=== PATIENT | female | born 1970 | race Caucasian/White ===

== ENCOUNTER 2018-01-11 07:48 | Inpatient (IN) ==
[2018-01-11] MEDS ORDERED: *HR* Midazolam HCl 2 MG/2 ML VIAL ONE (08:06)
[2018-01-11] MEDS ORDERED: *HR* Propofol 200 MG/20 ML VIAL IVP ONE (08:06)
[2018-01-11] MEDS ORDERED: *HR* FentaNYL (PF) 100 MCG/2 ML VIAL ONE ×2 (08:06→09:48)
[2018-01-11] MEDS ORDERED: *HR* Succinylcholine 200 MG/10 ML VIAL IVP ONE (08:08)
[2018-01-11] MEDS ORDERED: CeFAZolin Syr 2,000MG/20 ML 2,000 MG/20 ML SYRINGE IVPB ONE (08:16)
[2018-01-11] MEDS ORDERED: Lidocaine -MPF 1% 2 ML VIAL ID ONE (08:18)
[2018-01-11] MEDS ORDERED: Albuterol 2.5 MG/3 ML NEBULIZER IH ONE (08:18)
[2018-01-11] MEDS ORDERED: Albuterol 2.5 MG/3 ML NEBULIZER ONE (08:20)
[2018-01-11] MEDS: Ringers Solution, Lactated 1,000 ML IVC SCH ×2 (08:27→14:58)
--- NOTE | 2018-01-11 08:32 | Anesthesia Evaluation PreOp ---
Date of Encounter: 01/11/18 Time of Encounter: 08:30 - Past History Planned Operation: Abd sacropexy, ureteral sling, cysto Cardiac History: HTN, Hyperlipidemia Pulmonary History: Smoker (QUIT TWO WEEKS AGO, ON CHANTIX) [employer] History: Denies Any Significant HX Other Medical History: Thyroid (Hypothyroid) Anesthesia History: Past Anesthesia (hysterectomy 2009 thyroidectomy 2011 elbow bilateral 1996 LHC, no stents 2011 tubal ligation 1990 broke shins and reset for bow leg 1971) Alcohol Use: none Drug use: none Medications and Allergies Levothyroxine [Synthroid] 100 mcg PO DAILY 03/21/17 [History] Aspirin 81 mg PO DAILY 01/11/18 [History] Atorvastatin [Lipitor] 40 mg PO HS 01/11/18 [History] Ca/D3/Mag#11/Zinc/School Bus Aide/Ananda/Bor [Caltrate 600+D Plus Tablet] 1 tab PO DAILY 01/11 [History] Gabapentin [Neurontin] 800 mg PO QID 01/11/18 [History] Lisinopril [Zestril] 10 mg PO DAILY 01/11/18 [History] Meloxicam [Meloxicam] 15 mg PO DAILY PRN 01/11/18 [History] OxyCODONE Immed Rel [Roxicodone 10 MG] 10 mg PO Q4-6H PRN 01/11/18 [History] Vitamin E Mixed [Vitamin E] 1,000 unit PO DAILY 01/11/18 [History] 3 Allergy/AdvReac Type Severity Reaction Status Date / Time morphine Allergy Hives Verified 01/11/18 08:14 - Meds/Allergy Pre-op Review Medications Reviewed: Yes Allergies Reviewed: Yes Anesthesia Results - Labs Laboratory Tests 01/06/18 01/06/18 11:15 11:15 Hgb 13.1 Hct 40.7 Plt Count 210 Potassium 4.2 Creatinine 0.83 - Imaging Additional studies: NSR Anesthesia Exam O2 Sat Height 1.63 m Height 1.63 m Weight 91.172 kg BMI 35 O2 Sat by Pulse Oximetry 96 Vital Signs Temp Pulse Resp BP Pulse Ox 97.8 F 68 18 119/80 96 01/11/18 08:06 01/11/18 08:06 01/11/18 08:06 01/11/18 08:06 01/11/18 08:06 35 NPO (# of Hours): >8HRS - HEENT Teeth: Missing, Poor dentition - [employer] LOC: Oriented - Cardiac Rhythm: Regular - Pulmonary Breath Sounds: bilateral Clear Anesthesia Assess/Plan ASA Score: 2 Modified Wallace Scale for Level of Consciousness: Cooperative, oriented, and tranquil Anesthetic Plan: General Monitoring Plan: Standard Monitors Recovery Plan: PACU Anes Supervising Prov Stmt: I have participated in the evaluation of this patient. Patient informed and consented. Risks, benefits, and alternatives discussed. Patient wishes to proceed.
--- NOTE | 2018-01-11 09:09 | History & Physical Report ---
Date of Encounter: 01/11/18 Time of Encounter: 09:08 24 Hour HP Update - Instructions Instructions: If the History and Physical is less than 30 days old and was completed prior to A.M. admission and or procedure and has NOT been updated on calendar day of procedure please complete this update prior to performing procedure. - Update Patient reports changes in Medical Condition: No Changes in examination, assessment, or condition: No Changes in Medication: No Preop tests/diagnostics Reviewed: Yes Surgery Remains Indicated: Yes Consent for Planned Operative Procedure(s) Verified: Yes - Pre-Operative Checklist Preoperative Checklist Indicated: Yes Prophylactic Antibiotic Ordered: Yes Home Medications Include Beta Dima: No Beta Dima Taken Today (Day of Surgery): No Beta Dima Taken Yesterday (Day Prior to Surgery): No Is VTE Prophylaxis Indicated?: Yes
[2018-01-11] MEDS ORDERED: Lidocaine/EPI 1:100k 1% 20 ML VIAL ONE (09:10)
--- NOTE | 2018-01-11 09:10 | History & Physical Report ---
Date of Encounter: 01/11/18
[2018-01-11] MEDS ORDERED: *HR* Rocuronium Bromide 50 MG/5 ML VIAL ONE (09:43)
[2018-01-11] MEDS ORDERED: *HR* PHENYLEPHRINE 1,000 MCG/10 ML SYRINGE IVP ONE (10:33)
[2018-01-11] MEDS ORDERED: Ondansetron 4 MG/2 ML VIAL IVP PRN ×2 (11:25→15:50)
[2018-01-11] MEDS ORDERED: *HR* OxyCODONE Immed Rel 5 MG TABLET PO PRN (11:25)
[2018-01-11] MEDS ORDERED: Neostigmine Methylsulfate 3 MG/3 ML SYRINGE ONE (11:40)
[2018-01-11] MEDS: *HR* FentaNYL (PF) 100 MCG/2 ML VIAL IVP PRN ×2 (13:50→13:55)
[2018-01-11] MEDS ORDERED: Acetaminophen IV 1,000 MG/100 ML INFUS..BTL IVPB ONE (13:57)
[2018-01-11] MEDS ORDERED: Ketorolac 30 MG/ML VIAL IVP ONE (13:57)
[2018-01-11] MEDS: *HR* HYDROmorphone (PF) 1 MG/ML SYRINGE IVP PRN ×6 (14:05→14:53)
--- NOTE | 2018-01-11 14:12 | Operative Note ---
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 Anesthesia was applied without complication. She was then moved in a modified low lithotomy position and draped using sterile technique. hernandes cath Retractor was in place with bowel packed superiorly. . Sharp dissection was used to dissect the bladder away from the anterior vagina along the vesicovaginal septum. No obvious bladder injury occurred during this step. Dissection continued over the cervix and posteriorly to separate the vagina from the rectum along the rectovaginal septum. An EEA was in the vagina to aid in dissection and maneuverability of the vagina. The retroperitoneal space was then exposed by incising the posterior peritoneum from the level of the rectovaginal septum cranially to the sacral promontory. I identified the right ureter and was able to dissect this laterally to avoid injury or involvement with the case. A [employer] polypropylene graft was obtained and trimmed to size. eight 2-0 Prolene sutures were pre-placed. 4 were located on the anterior aspect of the vagina and cervix. 4 additional sutures were placed posterior on the cervix and as posterior as the dissection would allow. The 4 anterior sutures were secured to one arm of the polypropylene graft. The 4 posterior sutures were secured to the other arm. Excess mesh material was excised and it appeared the graft was well secured to the anterior and posterior aspect of the vagina. Two additional Prolene sutures were preplaced at the sacral promontory. These sutures were threaded through the graft to secure the third arm to the sacral promontory. The graft was positioned along the retroperitoneal space cranial to the sacral promontory. It was sized to allow for a tension-free approximation. The peritoneal reflection was closed over the graft using a 2-0 Vicryl isolating the graft in a retroperitoneal location. A cystoscopy was performed. I carefully examined the entire bladder and noted no injury from the procedure. I first cannulated the right ureteral orifice with a 5 Nauruan ureteral catheter. This passed without resistance up to what I felt was the level of the kidney. The same was repeated on the left side and it passed easily. The retractor and all packing were removed. Counts were confirmed to be correct 2. The rectus muscle was closed using a running 0 Vicryl suture. The fascia was closed with a #1 looped PDS. I placed the sling prior to closing the Abilio' s and skin. they were closed with a 2-0 Vicryl and the skin with 4-0 Monocryl and Steri-Strips at the end of the procedure. For the sling I first placed a weighted vaginal speculum and secured with an Allis clamp. Snowman retractor was placed and used to retract the labia and provide better visualization. At that point, approximately 5 cc of 1% lidocaine with epinephrine was injected into the anterior vaginal mucosa overlying the mid urethra to hydrodissect the area. 15 blade scalpel was then used to make an approximately 2-cm veritcal incision. Underlying tissue was carefully dissected with Metzenbaum scissors and blunt dissection to create a space lateral to the urethra and beneath the pubic rami on each side. The hernandes catheter was in place allowing me to palpate the urethra and prevent urethral injury during this portion of the procedure. I had adequate dissection on both sides. The Gordy trocars (opened by accident) were still used and manipulated into a shape similar to the Supris retractors and placed from an [id number] fashion down onto my finger within the vaginal incision and previously dissected area. they were passed just inside of the incision. While passing the trocars I was careful to stay close to the pubic symphysis and used my finger to push the urethra off to the contralateral side. With both trocars in place, I removed the Hernandes catheter and inserted the 21-Nauruan rigid cystoscope. The bladder was inspected with a 30 and 70-degree lens. There was clear efflux of urine from both ureteral orifices and no evidence of trocar injury and the bladder mucosa was intact. The urethra also appeared uninjured and the hernandes catheter was replaced. At that point, I obtained the Supris sling and threaded the sling through the eyelets of the trocars. The trocars were then pulled from an [id number] fashion. The sling was positioned under the mid urethra. The sling was not twisted and had minimal tension . I was satisfied with the sling position and closed the vaginal incision with a running 2-0 Vicryl suture. Vaginal packing was placed with 2- inch Dionte moistened with normal saline. Hernandes catheter was left in place. The excess sling material was excised and incision closed.
[2018-01-11] MEDS ORDERED: *HR* Promethazine 25 MG/ML VIAL ONE (14:28)
[2018-01-11] MEDS ORDERED: *HR* Promethazine 25 MG/ML VIAL IVP PRN (14:47)
--- NOTE | 2018-01-11 15:09 | Anesthesia Evaluation Post Op ---
Date of Encounter: 01/11/18 Time of Encounter: 15:08 - Vital Signs Vital Signs: Vital Signs/O2 Sat, Most Current Temp Pulse Resp BP Pulse Ox 98.2 F 77 14 110/66 96 01/11/18 14:40 01/11/18 15:00 01/11/18 15:00 01/11/18 15:00 01/11/18 15:00 - Lungs Lungs: Clear Ascult./Percussion - Airway Airway: Non-obstructed - Cardiovascular Regular Rate - Mental Status Mental Status: Alert & Oriented, Answers Appropriately - Pain Pain Scale: 0 Pain Scale used: Numeric (1 - 10) - Nausea Vomiting Nausea Vomiting: Not Present - Hydration Hydration: Ice chips, Forrest catheter - Discharge PostOp Status: Transfer Patient to floor
[2018-01-11] MEDS ORDERED: Naloxone 0.4 MG/ML INJ IVP PRN (15:50)
[2018-01-11] MEDS ORDERED: *HR* Belladonna Alkaloids/Opium 60 MG RECTAL SUPPOSITORY RC PRN (15:50)
[2018-01-11] MEDS ORDERED: OXYCODONE Oral CONC 10 MG/0.5 ML ORAL.SYG SL PRN (15:50)
[2018-01-11] MEDS: Gabapentin 400 MG CAPSULE PO SCH ×2 (16:17→20:33)
[2018-01-11] MEDS: *HR* HYDROcodone/Acet 5/325 mg TABLET PO PRN (16:17)
[2018-01-11] MEDS: 0.9 % Sodium Chloride 1,000 ML IVC SCH (16:18)
[2018-01-11] MEDS: *HR* HYDROmorphone 20 MG/20 ML PCA IVC PRN (17:46)
[2018-01-11] MEDS: *HR* Promethazine 25 MG/ML VIAL IVP PRN (21:53)
[2018-01-11] MEDS: Ketorolac 15 MG/ML VIAL IVP PRN (21:54)
[2018-01-12] MEDS: *HR* HYDROcodone/Acet 5/325 mg TABLET PO PRN ×2 (03:41→13:01)
[2018-01-12] MEDS: 0.9 % Sodium Chloride 1,000 ML IVC SCH (03:42)
[2018-01-12 05:21] LABS: Hematocrit 34.4 % (35.3-44.9); Mean Corpuscular HGB Conc 31.7 g/dL (31.6-35.5); Mean Corpuscular Hemoglobin 28.2 pg (28.0-33.3); Mean Corpuscular Volume 89.1 fL (83.0-100.0); Mean Platelet Volume 10.6 fL (9.4-12.4); Platelet Count 160 K/mcL (140-400); Red Blood Count 3.86 M/mcL (3.82-4.97); Red Cell Distribution Width 14.8 % (11.5-14.5)
[2018-01-12 05:43] LABS: Hemoglobin 10.9 g/dL (11.5-15.4)
[2018-01-12 05:48] LABS: BUN/Creatinine Ratio 15 (6-26); Blood Urea Nitrogen 12 mg/dL (6-20); Calcium 9.9 mg/dL (8.6-10.3); Carbon Dioxide 26 mEq/L (23-29); Chloride 109 mEq/L (98-107); Glucose 142 mg/dL (70-105); Osmolality,Calculated 288 (280-300); Potassium 4.2 mEq/L (3.5-5.1); Sodium 138 mEq/L (136-145); eGFR For African Americans > 60 (> 60); eGFR For Non-African Americans > 60 (> 60)
--- NOTE | 2018-01-12 07:31 | Urology Progress Note ---
Date of Encounter: 01/12/18 Time of Encounter: 07:29 - Assessment and Plan (1) Prolapse of vaginal wall Current Visit: Yes Status: Resolved Assessment and plan: OOB to chair. remove hernandes cath. remove vaginal packing. keep JIG GRINDER for now but will turn off today. hold clear diet for now. Progress Note Subjective: still having pain, pain is less Narrative: feels much better today. JIG GRINDER helped. Objective Initial Vital Signs Temp Pulse Resp BP Pulse Ox 97.8 F 68 18 119/80 96 01/11/18 08:06 01/11/18 08:06 01/11/18 08:06 01/11/18 08:06 01/11/18 08:06 - General physical appearance Present: no distress - Genitourinary Urine Appearance: Present: Clear - Additional Exam oriented. - Labs 01/12/18 04:39 01/12/18 04:39 Diabetes panel 01/12/18 Range/Units 04:39 Sodium 138 (136-145) mEq/L Potassium 4.2 (3.5-5.1) mEq/L Chloride 109 H (98-107) mEq/L Carbon Dioxide 26 (23-29) mEq/L BUN 12 (6-20) mg/dL Creatinine 0.81 (0.60-1.20) mg/dL Glucose 142 H (70-105) mg/dL Calcium 9.9 (8.6-10.3) mg/dL Calcium panel 01/12/18 Range/Units 04:39 Calcium 9.9 (8.6-10.3) mg/dL Pituitary panel 01/12/18 Range/Units 04:39 Sodium 138 (136-145) mEq/L Potassium 4.2 (3.5-5.1) mEq/L Chloride 109 H (98-107) mEq/L Carbon Dioxide 26 (23-29) mEq/L BUN 12 (6-20) mg/dL Creatinine 0.81 (0.60-1.20) mg/dL Glucose 142 H (70-105) mg/dL Calcium 9.9 (8.6-10.3) mg/dL Adrenal panel 01/12/18 Range/Units 04:39 Sodium 138 (136-145) mEq/L Potassium 4.2 (3.5-5.1) mEq/L Chloride 109 H (98-107) mEq/L Carbon Dioxide 26 (23-29) mEq/L BUN 12 (6-20) mg/dL Creatinine 0.81 (0.60-1.20) mg/dL Glucose 142 H (70-105) mg/dL Calcium 9.9 (8.6-10.3) mg/dL - VTE Documentation of Mechanical Device: Intermittent pneumatic compression device Consult Discharge Plan - Plan Referrals: Francine Cole, LINE CONTROLLER [Primary Care Provider] -
[2018-01-12] MEDS: Gabapentin 400 MG CAPSULE PO SCH ×4 (08:43→20:54)
[2018-01-12] MEDS ORDERED: 0.9 % Sodium Chloride 1,000 ML ONE (13:44)
[2018-01-12] MEDS: Ketorolac 15 MG/ML VIAL IVP PRN ×2 (13:48→20:55)
[2018-01-12] MEDS: *HR* Promethazine 25 MG/ML VIAL IVP PRN ×2 (15:38→20:55)
[2018-01-12] MEDS: *HR* HYDROmorphone 20 MG/20 ML PCA IVC PRN (16:08)
[2018-01-12] MEDS: *HR* OxyCODONE/APAP 10/325 TABLET PO PRN (19:53)
[2018-01-13] MEDS: *HR* OxyCODONE/APAP 10/325 TABLET PO PRN ×3 (05:42→09:17)
--- NOTE | 2018-01-13 07:09 | Urology Progress Note ---
Date of Encounter: 01/13/18 Time of Encounter: 07:07 - Assessment and Plan (1) Prolapse of vaginal wall Current Visit: Yes Status: Resolved Assessment and plan: Doing okay postoperatively. Still with some pain control issues. Patient wants to go home. I will remove CHERRY DIPPER and see how she does on oral pain medication today. If does okay, okay to discharge. Progress Note Subjective: pain is less, tolerating a regular diet, flatus Narrative: doing ok. still with pain control issues. Objective Initial Vital Signs Temp Pulse Resp BP Pulse Ox 97.8 F 68 18 119/80 96 01/11/18 08:06 01/11/18 08:06 01/11/18 08:06 01/11/18 08:06 01/11/18 08:06 - General physical appearance Present: no distress - Abdomen Present: soft, wound (dry. no drainage) - Labs 01/12/18 04:39 01/12/18 04:39 - VTE Documentation of Mechanical Device: Intermittent pneumatic compression device Consult Discharge Plan - Plan Referrals: Franicne Cole, TECHNICAL SPEC [Primary Care Provider] -
--- NOTE | 2018-01-13 07:11 | Discharge Summary ---
Date of Encounter: 01/13/18 Time of Encounter: 07:11 - Discharge Diagnosis (1) Prolapse of vaginal wall Priority: Primary Status: Resolved - Hospital Course Hospital course: Ms. Cintron is a 47 year old female postoperative day #2 status post sacral colpopexy and sling. Doing well. Urinating. Ambulating. Passing flatus. Tolerating regular diet. Only if she remains pain control. Discharge pending depending on pain control issues - Time Spent with Patient Total time spent providing and/or coordinating discharge services: - Discharge Medications Prescriptions: OxyCODONE/APAP 10/325 [Percocet 10/325 MG] 1 each PO Q4HR PRN 7 Days #30 tablet PRN Reason: mild/mod pain Home Medications: Levothyroxine [Synthroid] 100 mcg PO DAILY 03/21/17 [History] Aspirin 81 mg PO DAILY 01/11/18 [History] Atorvastatin [Lipitor] 40 mg PO HS 01/11/18 [History] Ca/D3/Mag#11/Zinc/Archeologist/Ananda/Bor [Caltrate 600+D Plus Tablet] 1 tab PO DAILY 01/11 [History] Gabapentin [Neurontin] 800 mg PO QID 01/11/18 [History] Lisinopril [Zestril] 10 mg PO DAILY 01/11/18 [History] Meloxicam 15 mg PO DAILY PRN 01/11/18 [History] Vitamin E Mixed [Vitamin E] 1,000 unit PO DAILY 01/11/18 [History] OxyCODONE/APAP 10/325 [Percocet 10/325 MG] 1 each PO Q4HR PRN 7 Days #30 tablet 01/13/18 [Rx] Allergies/Adverse Reactions: 3 Allergy/AdvReac Type Severity Reaction Status Date / Time morphine Allergy Hives Verified 01/11/18 08:14 Date of admission: 01/11/18 15:29 Primary care physician: Francine Cole CNP Discharging clinician: Ashutosh Culver Anticipated date of discharge: 01/13/18 Exam Initial Vital Signs Temp Pulse Resp BP Pulse Ox 97.8 F 68 18 119/80 96 01/11/18 08:06 01/11/18 08:06 01/11/18 08:06 01/11/18 08:06 01/11/18 08:06 - General physical appearance Present: no distress - Abdomen Abdomen: Present: soft - Patient Status Disposition: Home, Self-Care Functional capacity at discharge: independent ambulation Overall status at discharge: patient is progressing back to baseline - Discharge Instructions Follow Up With: Francine Cole CNP [Primary Care Provider] - Ashutosh Culver MD [Partnered Physician] - (2-4 weeks) Additional Instructions: Okay to shower No baths or swimming Okay to keep incision open to air and dry No driving for at least 2 weeks No heavy lifting or heavy activity Okay to walk upstairs or ambulate for exercise Take a stool softener daily to prevent constipation Nothing per vagina. Okay to use a pad as some vaginal drainage is normal Call if fever over 101 degrees, severe abdominal pain, inability to urinate, significant nausea vomiting. - Diet and Activity Activity: other Diet: advance to your usual diet - VTE Documentation of Mechanical Device: Intermittent pneumatic compression device
[2018-01-13] MEDS ORDERED: Ketorolac 15 MG/ML VIAL IVP PRN (07:16)
[2018-01-13 07:27] VITALS: BP 114/75
[2018-01-13] MEDS: Gabapentin 400 MG CAPSULE PO SCH (07:45)
== END 2018-01-13 10:15 | disposition home or self-care (01) | DRG 748 ==
LOC: SAMDAY 07:48 → 3ANU 15:29
PROVIDERS: ADMIT Urology; ATTEND Urology